=== PATIENT | female | born 1930 | race Asian ===

== ENCOUNTER → 2016-12-17 | Outpatient (CLI) | payer MEDICARE, OTHER ==
[~2016-12-17] MED LIST: AMLO-511 PO; ASPI-1061 PO; FENO54TA5 PO; INSLAN SQ; INSU100C3; IRON TABS; LEVOTHYROXINE; VALS80TA2 PO; VIT D2 PO
[2016-12-17 16:53] LABS: BASOPHILS % (AUTO) 0.4 % (0.0-2.0); EOSINOPHILS % (AUTO) 2.9 % (1.0-6.0); LYMPHOCYTES # (AUTO) 1.5 K/uL (1.0-4.8); LYMPHOCYTES % (AUTO) 17.2 % (22.0-44.0); MEAN CORPUSCULAR HEMOGLOBIN 29.7 pg (26.0-34.0); MEAN CORPUSCULAR HGB CONC 32.2 G/dL (31.0-37.0); MEAN CORPUSCULAR VOLUME 92 fL (80-100); MONOCYTES # (AUTO) 0.6 K/uL (0.1-1.0); MONOCYTES % (AUTO) 7.3 % (2.0-9.0); NEUTROPHILS # (AUTO) 6.3 K/uL (1.8-7.7); NEUTROPHILS % (AUTO) 72.2 % (40.0-70.0); PLATELET COUNT (AUTO) 363 K/uL (150-450); RED BLOOD CELL COUNT(AUTO) 2.18 MIL/uL (4.00-5.20); RED CELL DISTRIBUTION WIDTH 13.8 % (11.5-14.5); WHITE BLOOD COUNT (AUTO) 8.7 K/uL (4.5-11.0)
[2016-12-17 17:12] LABS: HEMOGLOBIN A1C 6.2 % (4.5-6.2)
[2016-12-17 17:26] LABS: ALBUMIN 2.1 g/dL (3.4-5.0); BILIRUBIN,TOTAL 0.2 mg/dL (0.1-1.0); CALCIUM, TOTAL 7.9 mg/dL (8.8-10.5); CREATININE 2.81 mg/dL (0.60-1.30); POTASSIUM 5.7 mmol/L (3.5-5.1); THYROID STIMULATING HORMONE 2.19 uIU/mL (0.36-3.74); TOTAL PROTEIN, SERUM 5.2 g/dL (6.4-8.2)
[2016-12-18 09:21] LABS: HEMATOCRIT 20.1 % (36-46); HEMOGLOBIN 6.5 g/dL (12.0-16.0)
== END | disposition home or self-care (01) ==
LOC: LABPV 12:54
PROVIDERS: ATTEND Internal Medicine
DX: E11.69 Type 2 diabetes mellitus with other specified complication (principal); D64.9 Anemia, unspecified; E78.5 Hyperlipidemia, unspecified; Z79.899 Other long term (current) drug therapy
CPT/HCPCS: 83036; 83540; 84439; 84443

== ENCOUNTER 2017-08-21 07:05 | Emergency (ER) | payer MEDICARE, OTHER ==
[~2017-08-21] VITALS: Ht 152.4 cm; Wt 59.1 kg
[~2017-08-21 07:05] MED LIST changes: -ASPI-1061 PO; +ASPI81TA33 PO
[2017-08-21] MEDS ORDERED: IOVERSOL 320 MG/ML 100 ML VIAL ONE (07:21)
[2017-08-21] MEDS ORDERED: BENZ-51 PO (07:51)
[2017-08-21] MEDS ORDERED: NIFE10 PO (07:51)
[2017-08-21 07:56] LABS: ALANINE AMINOTRANSFERASE 21 U/L (12-78); ALBUMIN 2.3 g/dL (3.4-5.0); ALKALINE PHOSPHATASE 60 U/L (46-116); ANION GAP 7 mmol/L (8-16); ASPARTATE AMINOTRANSFERASE 17 U/L (15-37); BILIRUBIN,TOTAL 0.3 mg/dL (0.1-1.0); CALCIUM, TOTAL 7.5 mg/dL (8.8-10.5); CARBON DIOXIDE 32 mmol/L (22-29); CHLORIDE 104 mmol/L (98-107); CREATINE KINASE, TOTAL 27 U/L (26-192); CREATININE 2.32 mg/dL (0.60-1.30); GLOMERULAR FILTR. RATE CALC 20 mL/min (>60); GLUCOSE,RANDOM 120 mg/dL (70-110); SODIUM SERUM 143 mmol/L (136-145); TOTAL PROTEIN, SERUM 5.1 g/dL (6.4-8.2); UREA NITROGEN, BLOOD 43 mg/dL (7-18)
[2017-08-21 08:00] LABS: POTASSIUM 2.7 mmol/L (3.5-5.1)
[2017-08-21] MEDS ORDERED: SODIUM CHLORIDE 0.9% 500 ML IV ONE (08:15)
[2017-08-21 08:21] LABS: BASOPHILS % (AUTO) 0.8 % (0.0-2.0); HEMATOCRIT 32.1 % (36-46); HEMOGLOBIN 10.4 g/dL (12.0-16.0); LYMPHOCYTES # (AUTO) 1.3 K/uL (1.0-4.8); LYMPHOCYTES % (AUTO) 12.7 % (22.0-44.0); MEAN CORPUSCULAR HEMOGLOBIN 29.5 pg (26.0-34.0); MEAN CORPUSCULAR HGB CONC 32.3 G/dL (31.0-37.0); MEAN CORPUSCULAR VOLUME 91 fL (80-100); MONOCYTES # (AUTO) 1.2 K/uL (0.1-1.0); MONOCYTES % (AUTO) 11.7 % (2.0-9.0); NEUTROPHILS # (AUTO) 7.4 K/uL (1.8-7.7); NEUTROPHILS % (AUTO) 70.8 % (40.0-70.0); PLATELET COUNT (AUTO) 146 K/uL (150-450); RED BLOOD CELL COUNT(AUTO) 3.52 MIL/uL (4.00-5.20); RED CELL DISTRIBUTION WIDTH 26.1 % (11.5-14.5)
[2017-08-21 08:31] LABS: PROTHROMBIN TIME 10.7 SEC (9.4-11.6)
[2017-08-21 08:33] LABS: GLUCOSE,POINT OF CARE 76 MG/DL (70-110)
[2017-08-21] MEDS ORDERED: DEXTROSE 50%-WATER 25 GM/50 ML SYRINGE IVP ONE (08:45)
[2017-08-21] MEDS: DEXAMETHASONE SOD PHOS 4 MG/ML VIAL IVP ONE ×2 (08:47→08:55)
[2017-08-21 09:04] LABS: APPEARANCE,URINE CLEAR (CLEAR); BILIRUBIN,URINE NEGATIVE (NEGATIVE); GLUCOSE, URINE (UA) NEGATIVE (NEGATIVE); KETONES,URINE NEGATIVE (NEGATIVE); LEUKOCYTE ESTERASE ,URINE NEGATIVE (NEGATIVE); NITRATE,URINE NEGATIVE (NEGATIVE); OCCULT BLOOD,URINE NEGATIVE (NEGATIVE); PH,URINE 7.5 (5.0-8.0); PROTEIN,URINE SEE CONFIRM (NEGATIVE); UROBILINOGEN,URINE 0.2 mg/dL (<=1.0)
[2017-08-21 09:12] LABS: SULFOSALICYLIC ACID,URINE 3+ (Negative)
[2017-08-21 09:13] LABS: BACTERIA,URINE None Seen /HPF (None Seen); RBC,URINE None Seen /HPF (0-2); RENAL EPITHELIAL CELLS,URINE Few /LPF (None Seen)
[2017-08-21 09:13] LABS: GLUCOSE,POINT OF CARE 208 MG/DL (70-110)
[2017-08-21 09:45] VITALS: BP 148/77
== END 2017-08-21 10:45 | disposition left against medical advice (07) ==
LOC: EMS 07:06
DX: R41.82 Altered mental status, unspecified (principal); E11.9 Type 2 diabetes mellitus without complications; K85.90 Acute pancreatitis without necrosis or infection, unspecified; I10 Essential (primary) hypertension; E03.9 Hypothyroidism, unspecified; R79.1 Abnormal coagulation profile; R79.9 Abnormal finding of blood chemistry, unspecified; Z99.2 Dependence on renal dialysis; Z90.49 Acquired absence of other specified parts of digestive tract
CPT/HCPCS: 36415; 51702; 70450; 70496; 71045; 80053; 81001; 82140; 82550; 82962; 84484; 85025; 85610; 85730; 93005; 96374; 99285; J1100; Q9967